=== PATIENT | female | born 1990 | race Caucasian/White ===

== ENCOUNTER 2017-02-19 15:07 | Emergency (ER) | payer BC ==
[~2017-02-19] VITALS: Ht 154.9 cm; Wt 52.2 kg
[2017-02-19 15:19] VITALS: BP 132/74
--- NOTE | 2017-02-19 15:45 | NUR ---
PT TO CT
[2017-02-19] MEDS ORDERED: IBUPROFEN 600 MG TABLET PO ONE ×2 (16:04→16:30)
== END 2017-02-19 16:13 | disposition home or self-care (01) ==
LOC: ER 15:10
DX: S00.03XA Contusion of scalp, initial encounter (principal); V43.62XA Car passenger injured in collision with other type car in traffic accident, initial encounter; Y93.89 Activity, other specified; Y92.413 State road as the place of occurrence of the external cause; Y99.8 Other external cause status
CPT/HCPCS: 70450; 99284; A4606; Z7610